=== PATIENT | female | born 1940 | race Caucasian/White ===

== ENCOUNTER 2017-08-03 16:05 | Emergency (ER) | payer MEDICARE, BC ==
[2017-08-03 16:28] VITALS: BP 173/77
[2017-08-03] MEDS ORDERED: Ibuprofen 600 MG Tab PO ONE (16:52)
[2017-08-03] MEDS ORDERED: Acetaminophen 325 MG Tab PO ONE (16:53)
--- NOTE | 2017-08-03 17:12 | EDM.PDOC ---
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 She states that both of these problems have been going on for several days. She did have blood work done with her oncologist around a week ago but hasn't been given those results yet. Yesterday she went into the walk-in clinic because the pain in her "right ovary" - she points to her right groin when asked for clarification of location of pain - was becoming more severe. The rash has also progressed. Pain is sharp, worse with movement, better with rest, severe, no relieving factors. The rash is located mostly on her right leg and also a little bit on her low back area. It is not itchy or painful. There is no provoking factor. No fever. No additional complaint. She otherwise feels well. No chest pain or shortness of breath. No abdominal pain or vomiting. Right Pelvic Pain Score (Numeric/FACES): 10 - Related Data Allergies Allergy/AdvReac Type Severity Reaction Status Date / Time No Known Allergies Allergy Verified 08/03/17 16:25 Home Meds: Home Meds Rosuvastatin [Crestor] 20 mg PO DAILY 08/03/17 [History] Past Medical History Oncologic (Cancer) History: Reports: Lymphoma Social & Family History - Tobacco Use Smoking Status *Q: Never Smoker ED ROS GENERAL - Review of Systems Review Of Systems: See Below Constitutional: Denies: Fever HEENT: Reports: No Symptoms Respiratory: Denies: Shortness of Breath Cardiovascular: Denies: Chest Pain Endocrine: Reports: No Symptoms GI/Abdominal: Denies: Abdominal Pain : Reports: No Symptoms Musculoskeletal: Denies: Leg Pain Skin: Reports: Rash Neurological: Reports: No Symptoms Psychiatric: Reports: No Symptoms Hematologic/Lymphatic: Reports: No Symptoms Immunologic: Reports: No Symptoms ED EXAM, GENERAL - Physical Exam Exam: See Below Exam Limited By: No Limitations General Appearance: Alert, WD/WN, No Apparent Distress Eye Exam: Bilateral Eye: EOMI, Normal Inspection, PERRL Ears: Normal External Exam Nose: Normal Inspection Throat/Mouth: Normal Inspection, Normal Oropharynx, Normal Voice, No Airway Compromise Head: Atraumatic, Normocephalic Neck: Normal Inspection, Supple, Non-Tender, Full Range of Motion Respiratory/Chest: No Respiratory Distress, Lungs Clear, Normal Breath Sounds, Chest Non-Tender Cardiovascular: Normal Peripheral Pulses, Regular Rate, Rhythm, No Edema, No Murmur GI/Abdominal: Soft, Non-Tender, No Distention Back Exam: Normal Inspection Extremities: Other (Right inguinal area has 2 enlarged and tender lymph nodes, one is approximately marble sized and one is closer to golf ball sized. There is no fluctuance or erythema. Entire right leg has patchy areas of a papular and vesicular rash. No warmth. No tenderness. No discharge.) Neurological: Alert, Oriented, Normal Cognition, No Motor/Sensory Deficits Psychiatric: Normal Affect, Normal Mood Skin Exam: Warm, Dry, Intact, Normal Color Course - Vital Signs Last Recorded V/S: Last Vital Signs Temp 37.1 C 08/03/17 16:25 Pulse 84 08/03/17 16:25 Resp 18 08/03/17 16:25 BP 173/77 H 08/03/17 16:25 Pulse Ox 97 08/03/17 16:25 - Orders/Labs/Meds Meds: Medications Discontinued Medications Generic Name Dose Route Start Last Admin Trade Name [place] PRN Reason Stop Dose Admin Acetaminophen 650 mg 08/03/17 16:53 08/03/17 16:57 Tylenol PO 08/03/17 16:54 650 mg NOW ONE Administration Ibuprofen 600 mg 08/03/17 16:52 08/03/17 16:57 Motrin PO 08/03/17 16:53 600 mg ONETIME ONE Administration - Re-Assessments/Exams Free Text/Narrative Re-Assessment/Exam: 08/04/17 21:21 Patient's rash looks very consistent with the rash associated with CLL. She also has some tender lymphadenopathy without evidence of infection. She was already expecting need to resume chemotherapy. Encouraged her to follow up with her oncologist ideally on Saturday for further arrangements. Since she just had blood work done with her oncologist and she is well appearing and her current symptoms appear consistent with her known disease no indication for further blood work today. Departure - Departure Time of Disposition: 17:28 Disposition: Home, Self-Care 01 Clinical Impression: Lymphadenopathy, inguinal, CLL (chronic lymphoid leukemia) in relapse, Rash in adult - Discharge Information Instructions: Rash, Lymphadenopathy Referrals: Rosa Simmons, [facility] [Primary Care Provider] - Forms: ED Department Discharge Additional Instructions: 1. Your rash and enlarged groin lymph nodes are likely due to your CLL. Follow up with your oncologist on Saturday. 2. Take ibuprofen 600 mg (3 tabs of the 200mg tabs) and acetaminophen (Tylenol) as needed for pain. Take oxycodone as needed for severe pain. No driving while taking oxycodone as it could make you confused. Take a laxative when taking oxycodone as it causes constipation. 3. Return to the ED if worse, especially if you have severe pain, fever, or other concerning symptoms.
== END 2017-08-03 17:45 | disposition home or self-care (01) ==
LOC: JD.ED 16:05
DX: C91.12 Chronic lymphocytic leukemia of B-cell type in relapse (principal); R59.0 Localized enlarged lymph nodes; R21 Rash and other nonspecific skin eruption
CPT/HCPCS: 99284; A9270; 99283

== ENCOUNTER 2017-08-07 19:42 | Emergency (ER) | payer MEDICARE, BC ==
[2017-08-07 19:50] VITALS: BP 141/69
[2017-08-07] MEDS ORDERED: Sodium Chloride 0.9% 10 ML Syringe FLUSH PRN (20:04)
[2017-08-07] MEDS ORDERED: HYDROmorphone 0.5 MG/0.5 ML SYRINGE IVPUSH ONE (20:04)
--- NOTE | 2017-08-07 20:06 | EDM.PDOC ---
ED HPI GENERAL MEDICAL PROBLEM - General Chief Complaint: Lower Extremity Injury/Pain Stated Complaint: [facility] Time Seen by Provider: 08/07/17 19:52 Source of Information: Reports: Patient History Limitations: Reports: No Limitations - History of Present Illness INITIAL COMMENTS - FREE TEXT/NARRATIVE: Patient is a 76-year-old female with a history of CLL who presents to the ED complaining of fatigue, weakness, poor appetite, and pain secondary to shingles rash. Patient developed shingles to the right anterior lower leg this past . She was evaluated in the ED on Saturday with no findings concerning for shingles. She was seen by her cancer doctor Dr. Og yesterday and diagnosed with shingles. She is on valacyclovir, [place], and also Bactrim. She also developed a small patch of impetigo to the left earlobe. Since onset of the infection she's had a poor appetite. Over the past few days she's grown more unstable on her feet 2nd to fatigue and weakness. She states today she got weak and lowered herself to the ground. She was unable to get up from the ground on her own and thus layed there for approx 7 hours. Patient was incontinent to urine due to inability to get up. She's had a cough present for quite some time and states it's improving. She denies hitting her head, loss conscious, neck or back pain. Other than the rash to her right extremity low back she has no other complaints. Rashes present to the right anterior lower leg posterior aspect of the knee and upper leg into the buttocks and low back. She had this 3 years ago but notes this is worse today. She is not undergoing any treatment at this point for the CLL. Lower Back Pain Score (Numeric/FACES): 10 - Related Data Allergies Allergy/AdvReac Type Severity Reaction Status Date / Time No Known Allergies Allergy Verified 08/07/17 19:50 Home Meds: Home Meds Rosuvastatin [Crestor] 20 mg PO DAILY 08/03/17 [History] Hydrocodone/Acetaminophen [Hydrocodon-Acetaminophen 5-325] 1 tab PO Q6HR PRN [History] Sulfamethoxazole/Trimethoprim [Bactrim 400-80 MG] 1 tab PO BID 08/07/17 [History ] valACYclovir HCl [valACYclovir] 1 tab PO TID 08/07/17 [History] Past Medical History Oncologic (Cancer) History: Reports: Lymphoma Review of Systems - Review of Systems Review Of Systems: ROS reveals no pertinent complaints other than HPI. ED EXAM, GENERAL - Physical Exam Exam: See Below Exam Limited By: No Limitations General Appearance: Alert, WD/WN, No Apparent Distress Ears: Hearing Grossly Normal Nose: Normal Inspection Throat/Mouth: Normal Voice, No Airway Compromise Neck: Normal Inspection, Supple Respiratory/Chest: No Respiratory Distress, Lungs Clear, Normal Breath Sounds, No Accessory Muscle Use, Chest Non-Tender Cardiovascular: Normal Peripheral Pulses, Regular Rate, Rhythm Peripheral Pulses: 4+: Radial (R) GI/Abdominal: Normal Bowel Sounds Neurological: Alert, Oriented, CN II-XII Intact, Normal Cognition, No Motor/ Sensory Deficits, Slow to Respond (at times), Other (Friend is present and states patient is acting completely normal.) Psychiatric: Normal Affect, Normal Mood Skin Exam: Warm, Dry, Zoster-Like Rash Front/Back Body Diagram: 1 - Shingles present 2 - Shingles present 3 - Shingles present 4 - impetigo 5 - Small superfical abrasion 6 - bri cath present. few small red lesions cocerning for shingles. Course - Vital Signs Last Recorded V/S: Last Vital Signs Temp 98.8 F 08/07/17 19:45 Pulse 76 08/07/17 19:45 Resp 18 08/07/17 19:45 BP 141/69 H 08/07/17 19:45 Pulse Ox 100 08/07/17 19:45 Orthostatic Blood Pressure [ 115/59 Side, Right] Orthostatic Blood Pressure [ 129/75 Sitting] Orthostatic Blood Pressure [ 131/67 Supine] - Orders/Labs/Meds Orders: Active Orders 24 hr Category Date Time Status EKG Documentation Completion [RC] STAT Care 08/07/17 20:03 Active Orthostatic Vital Signs [RC] ASDIRECTED Care 08/07/17 20:04 Active Peripheral IV Care [RC] . DIRECTED Care 08/07/17 20:04 Active CXR [Chest 1V Frontal] [CR] Stat Exams 08/07/17 20:03 Taken Head wo Cont [CT] Stat Exams 08/07/17 21:56 Ordered UA W/MICROSCOPIC [URIN] Stat Lab 08/07/17 20:03 Ordered Sodium Chloride 0.9% [Normal Saline] 1,000 ml Med 08/07/17 20:15 Active IV ASDIRECTED Sodium Chloride 0.9% [Saline Flush] Med 08/07/17 20:04 Active 10 ml FLUSH ASDIRECTED PRN Peripheral IV Insertion Adult [OM.PC] Routine Oth 08/07/17 20:04 Ordered Medication Orders Sodium Chloride (Normal Saline) 1,000 mls @ 150 mls/hr IV ASDIRECTED PELON Last Admin: 08/07/17 20:23 Dose: 150 mls/hr Sodium Chloride (Saline Flush) 10 ml FLUSH ASDIRECTED PRN PRN Reason: Keep Vein Open Last Admin: 08/07/17 20:24 Dose: 10 ml Labs: Laboratory Tests 08/07/17 08/07/17 08/07/17 Range/Units 20:16 20:16 20:16 WBC 167.19 H* (3.98-10.04) K/mm3 RBC 3.63 L (3.98-5.22) M/mm3 Hgb 11.0 L (11.2-15.7) gm/L Hct 32.2 L (34.1-44.9) % MCV 88.7 (79.4-94.8) fl MCH 30.3 (25.6-32.2) pg MCHC 34.2 (32.2-35.5) g/dl RDW Std Deviation 44.0 (36.4-46.3) fL Plt Count 118 L (182-369) K/mm3 MPV 9.9 (9.4-12.3) fl Neutrophils % (Manual) 9 L (40-60) % Band Neutrophils % 0 (0-10) % Lymphocytes % (Manual) 87 H (20-40) % Atypical Lymphs % 1 % Monocytes % (Manual) 3 (2-10) % Eosinophils % (Manual) 0 L (0.7-5.8) % Basophils % (Manual) 0 L (0.1-1.2) Platelet Estimate Decreased Plt Morphology Comment Normal Ovalocytes 1+ slight RBC Morph Comment Abnormal Sodium 110 L* (136-145) mEq/L Potassium 5.6 H (3.5-5.1) mEq/L Chloride 77 L (98-107) mEq/L Carbon Dioxide 24 (21-32) mEq/L Anion Gap 14.6 (5-15) BUN 22 H (7-18) mg/dL Creatinine 1.1 H (0.55-1.02) mg/dL Est Cr Clr Drug Dosing 39.46 mL/min Estimated GFR (MDRD) 48 (>60) mL/min BUN/Creatinine Ratio 20.0 H (14-18) Glucose 106 (83-115) mg/dL Calcium 8.2 L (8.5-10.1) mg/dL Total Bilirubin 0.6 (0.2-1.0) mg/dL AST 106 H (15-37) U/L ALT 40 (14-59) U/L Alkaline Phosphatase 97 (46-116) U/L Creatine Kinase 420 H (26-192) U/L Troponin I < 0.017 (0.00-0.056) ng/mL Total Protein 6.2 L (6.4-8.2) g/dl Albumin 3.5 (3.4-5.0) g/dl Globulin 2.7 gm/dL Albumin/Globulin Ratio 1.3 (1-2) Mycoplasma pneumon IgM Negative (NEGATIVE) Meds: Medications Generic Name Dose Route Start Last Admin Trade Name Freq PRN Reason Stop Dose Admin Sodium Chloride 1,000 mls @ 150 mls/hr 08/07/17 20:15 08/07/17 20:23 Normal Saline IV 150 mls/hr ASDIRECTED PELON Administration Sodium Chloride 10 ml 08/07/17 20:04 08/07/17 20:24 Saline Flush FLUSH 10 ml ASDIRECTED PRN Administration Keep Vein Open Discontinued Medications Generic Name Dose Route Start Last Admin Trade Name Freq PRN Reason Stop Dose Admin Hydromorphone HCl 0.5 mg 08/07/17 20:04 08/07/17 20:23 Dilaudid IVPUSH 08/07/17 20:05 0.5 mg ONETIME ONE Administration - Re-Assessments/Exams Free Text/Narrative Re-Assessment/Exam: IV established with NS 150 mls per hour, Dilaudid 0.5 mg IVP. Initial labs and studies will include: CBC, CPK, mycoplasma, troponin, CMP, UA, chest x-ray, orthostatic vitals, and EKG. CXR: Reviewed with Dr. William with no acute findings noted. EKst degree AV block at a rate of 73 with incomplete right bundle branch block. No acute ST changes noted. Orthostatic vitals were negative. She has no symptoms with standing. White blood cell count 167.19, hemoglobin 11.0, platelet count 118, neutrophil percentage is 9, bands 0, lymphocyte percentage is 87, atypical lymphs 1, sodium 110, potassium 5.6, chloride 77, CO2 24, hCG 14.6, creatinine 1.1, CPK 420, troponin normal, mycoplasma negative. 2123 Called [facility] Call unable to get incontact with Dr. Morales canned food reconditioning inspector Oncologists. They will call back. I did speak with Dr. Schmid she requests transfer to [place]. 2135 Called [facility] Call back and spoke with Dr. Morales. Suggested admission to Hospitalists with oncology consult. [address] Frias canned food reconditioning inspector hospitalists at [facility]. He has accepted the patient. Requested Head CT. Ambulance notified with all transfer paperwork completed. Head CT obtained with no acute intracranial abnormalities. Reviewed with Dr. William. Final interpretation is pending. 08/07/17 22:28 Patient is nauseous requesting Zofran. Ordered 4 mg IVP. 2229 Ambulance has arrived to transport patient. Departure - Departure Time of Disposition: 20:45 Disposition: DC/Tfer to Acute Hospital 02 Condition: Good Clinical Impression: Hyponatremia, CLL (chronic lymphocytic leukemia), Hyperkalemia Shingles outbreak Qualifiers: Herpes zoster complications: unspecified herpes zoster complication Qualified Code(s): B02.8 - Zoster with other complications - Discharge Information Referrals: Luisito Og MD [Primary Care Provider] - Forms: ED Department Discharge - My Orders Last 24 Hours: My Active Orders 08/07/17 20:03 EKG Documentation Completion [RC] STAT CXR [Chest 1V Frontal] [CR] Stat UA W/MICROSCOPIC [URIN] Stat 08/07/17 20:04 Orthostatic Vital Signs [RC] ASDIRECTED Peripheral IV Care [RC] . DIRECTED Sodium Chloride 0.9% [Saline Flush] 10 ml FLUSH ASDIRECTED PRN Peripheral IV Insertion Adult [OM.PC] Routine 08/07/17 20:15 Sodium Chloride 0.9% [Normal Saline] 1,000 ml IV ASDIRECTED 08/07/17 21:56 Head wo Cont [CT] Stat - Assessment/Plan Last 24 Hours: My Active Orders 08/07/17 20:03 EKG Documentation Completion [RC] STAT CXR [Chest 1V Frontal] [CR] Stat UA W/MICROSCOPIC [URIN] Stat 08/07/17 20:04 Orthostatic Vital Signs [RC] ASDIRECTED Peripheral IV Care [RC] . DIRECTED Sodium Chloride 0.9% [Saline Flush] 10 ml FLUSH ASDIRECTED PRN Peripheral IV Insertion Adult [OM.PC] Routine 08/07/17 20:15 Sodium Chloride 0.9% [Normal Saline] 1,000 ml IV ASDIRECTED 08/07/17 21:56 Head wo Cont [CT] Stat
[2017-08-07] MEDS ORDERED: Sodium Chloride 0.9% 1,000 ML IV SCH (20:15)
[2017-08-07] MEDS ORDERED: Ondansetron 4 MG/2 ML SDV IVPUSH ONE (22:28)
--- NOTE | 2017-08-08 09:18 | CR ---
Chest: Portable view of the chest was obtained. Comparison: Prior chest x-ray 09/19/12. Heart size is normal. Tortuous thoracic aorta is seen. Left-sided infusion port is noted. Lungs are clear with no acute parenchymal change. Minimal scarring is seen within the left base. Mild scoliosis is present within the spine. Impression: 1. Incidental findings. Nothing acute is appreciated on portable chest x-ray. Diagnostic code #2
--- NOTE | 2017-08-08 09:18 | CT ---
Head CT Technique: Multiple axial sections through the brain were obtained. Intravenous contrast was not utilized. Comparison: No prior intracranial imaging. Findings: Ventricles along with basal cisterns and sulci over the convexities are mildly prominent. Minimal diminished density is noted within the periventricular and subcortical white matter which is compatible with small vessel ischemic demyelination change. No other abnormal parenchymal densities are seen. No evidence of intracranial hemorrhage. No midline shift or mass effect is seen. Bone window settings were reviewed which show no acute calvarial abnormality. Increased density is seen within the posterior left temporal scalp presumably representing benign subcutaneous lesion. Impression: 1. Mild senescent change. Other incidental finding. Nothing acute is appreciated on noncontrast head CT. Diagnostic code #2 I agree with preliminary report from [facility], finalized at 08/07/17, 11:33 PM Central Time
== END 2017-08-07 22:45 ==
LOC: JD.ED 19:42
DX: E87.1 Hypo-osmolality and hyponatremia (principal); C91.10 Chronic lymphocytic leukemia of B-cell type not having achieved remission; E87.5 Hyperkalemia; B02.8 Zoster with other complications; Z79.899 Other long term (current) drug therapy
CPT/HCPCS: 36415; 70450; 71045; 80053; 81001; 82550; 84484; 85007; 85027; 86738; 93005; 96361; 96374; 96375; 99285; J1170; J2405; J7040; J7050